=== PATIENT | female | born 1960 | race Caucasian/White ===

== ENCOUNTER 2024-04-25 06:09 | Day surgery (SDC) | payer OTHER, SELFPAY ==
[2024-04-23 14:20] VITALS: BMI 31.1
--- OUTSIDE RECORDS SUMMARY | 2024-04-25 06:10 | XMS_ITS | Continuity of Care Document ---
Author Organization [facility] [facility] Address [address] [place] [address]- Care Team Providers Care Research Agricultural Engineer Name Role Phone Libra Lugo MD Primary Care Physician Encounter 08/11/21 - 08/18/21 [facility] [address], [address] [place] [address]- Attending Physician: Libra Lugo MD Admitting Physician: Libra Lugo MD Referring Physician: Libra Lugo MD Allergies, Adverse Reactions, Alerts Substance Reaction Severity Status penicillin HIVES Active Immunizations Given and Recorded Vaccine Date Status Refusal Reason influenza virus vaccine, inactivated 1 03/17/14 Gi gianna Fluzone (oldterm) 04/19/12 Given Tet/diphth/pertussis, acel (oldterm) 04/19/12 Give n FluLaval (oldterm) 2 04/29/10 Given 1Admin Note: [facility] 2Admin Note: [facility]--[facility] Medications aspirin 81 mg oral enteric coated capsule 81, mg, 1, capsule, By Mouth, Daily, 0, 0, 06/11/06 8:20:55, Print SOPHIA Number, [id number], Constant Indicator Start Date: 06/11/06 Status: Ordered Calcium Acetate = 2,001 mg, By Mouth, Daily, 0 Refills, Maintenance, 07/27/11 13:55:31 Start Date: 07/27/11 Status: Ordered Flax Seed Oil oral capsule 0 Refills, Maintenance, 01/25/16 15:38:55 Start Date: 01/25/16 Status: Ordered Multivitamin By Mouth, Daily, 0 Refills, Maintenance Start Date: 07/27/11 Status: Ordered Problem List Condition Effective Dates Status Health Status Inform ant DVT(Confirmed) Active Hypercholesterolemia(Confirmed) Active Paroxysmal supraventricular tachycardia(Confirmed) Active Prediabetes(Confirmed) Active Pulmonary embolism(Confirmed) Active Social History Social History Type Response Smoking Status Never smoker; Tobacc o user in household: No entered on: 01/25/16 Sex
--- OUTSIDE RECORDS SUMMARY | 2024-04-25 06:10 | XMS_ITS | Continuity of Care Document ---
Author Organization [facility] Address [address] [place] [address]- Care Team Providers Care Rn Clinical Documentation Name Role Phone Estephania Zambrano DO Primary Care Physician Encounter [facility] [place] Date(s): 12/21/23 - 01/20/24 [facility] [address] [place] [id number] Allergies, Adverse Reactions, Alerts Substance Reaction Severity Status penicillin HIVES Active simvastatin Muscle ache Active Coconut Mild Active Immunizations Given and Recorded Vaccine Date Status Refusal Reason influenza virus vaccine, inactivated 05/01/23 [place] rded influenza virus vaccine, inactivated 05/13/21 [place] rded influenza virus vaccine, inactivated 05/10/17 [place] rded influenza virus vaccine, inactivated 1 03/17/14 Gi gianna tetanus-diphtheria toxoids (Td) 10/26/22 Recorded SARS-CoV-2 (COVID-19) mRNA BNT-162b2 vac 07/07/21 Recorded SARS-CoV-2 (COVID-19) mRNA BNT-162b2 vac 08/07/20 Recorded SARS-CoV-2 (COVID-19) mRNA BNT-162b2 vac 07/17/20 Recorded Fluzone (oldterm) 04/19/12 Given Tet/diphth/pertussis, acel (oldterm) 04/19/12 Give n tetanus/diphtheria/pertussis, acel(Tdap) 04/19/12 Recorded FluLaval (oldterm) 2 04/29/10 Given 1Admin Note: [facility] [employer] 2Admin Note: [facility]--EMPLOYER Medications Calcium Acetate = 2,001 mg, By Mouth, Daily, 0 Refills, Maintenance, 07/27/11 13:55:31 Start Date: 07/27/11 Status: Ordered Eliquis 5 mg oral tablet 1 tablet = 5 mg, By Mouth, 2 times a day, # 180 tablet, 3 Refills, Maintenance, 10/24/23 9:20:00 EDT, Tablet, [facility]/pharmacy #[id number], Partial fill upon patient request if the prescription is for a schedule II opioid drug., 166, cm, 10/24/23 8:47:00 EDT, H... Start Date: 10/24/23 Status: Ordered Flonase 50 mcg/inh nasal spray 1 sprays, Nares, Both, 2 times a day, # 16 Gm, 0 Refills, Maintenance, 01/31/23 11:36:00 EDT, [place], [id number], Partial fill upon patient request if the prescription is for a schedule II opioid drug., 1 sprays Nares, Both 2 times a day, 166,... Start Date: 01/31/23 Status: Ordered magnesium glycinate By Mouth, 0 Refills, Maintenance, 09/04/23 15:14:00 EST, Partial fill upon patient request if the prescription is for a schedule II opioid drug. Start Date: 09/04/23 Status: Ordered Problem List Condition Confirmation Course Effective Dates Status H ealth Status Informant History of pulmonary embolism Confirmed Active History of DVT in adulthood Confirmed Active Mixed hyperlipidemia Confirmed Active Obese class I Confirmed Active Paroxysmal supraventricular tachycardia Confirmed Active Physical exam Confirmed Active Colon cancer screening Confirmed Active TMJ syndrome Confirmed Active Uterine prolapse Confirmed Active Social History Social History Type Response Smoking Status Never smoker; Tobacc o user in household: No entered on: 01/25/16 Sex Patient Care team information Care Team Personnel Name: Estephania Zambrano DO Position: [facility] Physician - Primary Care Member Role: PCP Address: Address: [address] [place] [address]- Care Team Related Persons Name: ESTEPHANIA LOCKWOOD Address: home [address] [place] [phone] Name: DENIA LOCKWOOD Address: home [address] [place] [phone] Name: Castillo Chong
--- OUTSIDE RECORDS SUMMARY | 2024-04-25 06:10 | XMS_ITS | Continuity of Care Document ---
Author Organization [facility] Address [address] [place] [address]- Care Team Providers Care Shirt Folder Name Role Phone Lbira Lugo MD Primary Care Physician [phone] Encounter 07/15/20 - 07/22/20 [facility] [address], [address] [place] [address]- [place] Attending Physician: Libra Lugo MD Admitting Physician: Libra Lugo MD Referring Physician: Libra Lugo MD Allergies, Adverse Reactions, Alerts Substance Reaction Severity Status penicillin HIVES Active Immunizations Given and Recorded Vaccine Date Status Refusal Reason influenza virus vaccine, inactivated 1 03/17/14 Gi gianna Fluzone (oldterm) 04/19/12 Given Tet/diphth/pertussis, acel (oldterm) 04/19/12 Give n FluLaval (oldterm) 2 04/29/10 Given 1Admin Note: [facility] 2Admin Note: [facility]--[facility]ER Medications aspirin 81 mg oral enteric coated capsule 81, mg, 1, capsule, By Mouth, Daily, 0, 0, 06/11/06 8:20:55, Print SOPHIA Number, [id number], Constant Indicator Start Date: 06/11/06 Status: Ordered [...]
--- OUTSIDE RECORDS SUMMARY | 2024-04-25 06:11 | XMS_ITS | Continuity of Care Document ---
Author Organization [facility] Address [address] [place] [address]- Care Team Providers Care Casing Crew Pusher Name Role Phone Estephania Zambrano DO Primary Care Physician Encounter [facility] Date(s): 12/21/23 - 01/20/24 [facility] [address] [place] [address] Allergies, Adverse Reactions, Alerts Substance [...] FluLaval (oldterm) 2 04/29/10 Given 1Admin Note: [facility] 2Admin Note: [facility]--[facility]OY[facility] Medications Calcium Acetate = 2,001 mg, By Mouth, Daily, 0 Refills, Maintenance, 07/27/11 13:55:31 Start Date: 07/27/11 Status: Ordered Eliquis 5 mg oral tablet 1 tablet = 5 mg, By Mouth, 2 times a day, # 180 tablet, 3 Refills, Maintenance, 10/24/23 9:20:00 EDT, Tablet, [facility]/pharmacy #1230, Partial fill upon patient request if the prescription is for a schedule II opioid drug., 166, cm, 10/24/23 8:47:00 EDT, H... Start Date: 10/24/23 Status: Ordered Flonase 50 mcg/inh nasal spray 1 sprays, Nares, Both, 2 times a day, # 16 Gm, 0 Refills, Maintenance, 01/31/23 11:36:00 EDT, [place], [facility], Partial fill upon patient request [...] Team Personnel Name: Estephania Zambrano DO Position: [facility] Physician - Primary Care Member Role: PCP Address: Address: [address] [place] [address]- Care Team Related Persons Name: ESTEPHANIA LOCKWOOD Address: home [address] [place] [address] Name: DENIA LOCKWOOD Address: home [address] [place] [address] Name: Castillo Chong
--- OUTSIDE RECORDS SUMMARY | 2024-04-25 06:11 | XMS_ITS | Continuity of Care Document ---
Author Organization [facility] Address [address] [place] [address]- Care Team Providers Care Assistant Professor Of Sociology Name Role Phone Estephania Zambrano DO Primary Care Physician Encounter [facility] Date(s): 10/25/23 - 03/18/24 [facility] [address] [place] [id number] Discharge Disposition: A-D/C Home Attending Physician: Jacob Soni MD Admitting Physician: Jacob Soni MD Referring Physician: Estephania Zambrano DO Allergies, Adverse Reactions, Alerts Substance Reaction Severity [...] FluLaval (oldterm) 2 04/29/10 Given 1Admin Note: [facility] 2Admin Note: [facility] Medications Calcium Acetate = 2,001 mg, By Mouth, Daily, 0 Refills, Maintenance, 07/27/11 13:55:31 Start Date: 07/27/11 Status: Ordered Eliquis 2.5 mg oral tablet 1 tablet = 2.5 mg, By Mouth, 2 times a day, Decreasing dose per casino banker recommendation, # 180 tablet, 3 Refills, Maintenance, 02/04/24 16:43:00 EDT, [place], [id number], Partial fill uponpatient request if the prescription is for a schedu... Start Date: 02/04/24 Status: Ordered Flonase 50 mcg/inh nasal spray 1 sprays, Nares, Both, 2 times a day, # 16 Gm, 0 Refills, Maintenance, 01/31/23 11:36:00 EDT, [place], [id number], Partial fill upon patient request [...] syndrome Confirmed Active Uterine prolapse Confirmed Active Vital Signs Most recent to oldest [Reference Range]: 1 Height 165 cm (12/21/23 9:01 AM) Weight 84.5 kg (12/21/23 9:01 AM) Oxygen Saturation [94-100 %] 94 % (12/21/23 9:01 AM) Pulse Rate [55-90 bpm] 71 bpm (12/21/23 9:01 AM) Body Mass Index [18.5-24.99 kg/m2] 31.04 kg/m2 *>HHI* (12/21/23 9:01 AM) Blood Pressure [90-138/55-84 mm Hg] 133/ 84mm Hg (12/21/23 9:01 AM) Temperature [96.8-100.4 DegF] 97.6 DegF (12/21/23 9:01 AM) Mode of Delivery (Oxygen) Room air (12/21/23 9:01 AM) Blood pressure sites Arm, right (12/21/23 9:01 AM) Temperature Route Oral (12/21/23 9:01 AM) Dry Weight 84.5 kg (12/21/23 9:01 AM) Weight Obtained Via Standing scale (12/21/23 9:01 AM) Dry Weight Obtained Via Standing scale (12/21/23 9:01 AM) Social History Social History Type Response Smoking Status Never smoker; Tobacc o user in household: No entered on: 01/25/16 Sex Patient Care team information Care Team Personnel Name: Estephania Zambrano DO Position: [facility] Physician - Primary Care Member Role: PCP Address: Address: [address] [place] [id number] Name: Jacob Soni MD Position: [facility] Physician - Oncology Med Service: Hematology & Oncology Member Role: Admitting Physician Address: Address: [address] [place] [address] Hematology Oncology [place], [place] [address] Care Team Related Persons Name: ESTEPHANIA LOCKWOOD Address: home [address] [place] [address] Name: DENIA LOCKWOOD Address: home [address] [place], [place] [id number] Name: Castillo Chong
--- OUTSIDE RECORDS SUMMARY | 2024-04-25 06:11 | XMS_ITS | Continuity of Care Document ---
Author Organization [facility] Address [address] [place] [address]- Care Team Providers Care Sports Reporter Name Role Phone Parish REILLY, Libra London Primary Care Physician Encounter 08/23/23 - 08/30/23 [facility] [address], [address] [place] [address]- Attending Physician: María Elena Mike MD Admitting Physician: María Elena Mike MD Referring Physician: María Elena Mike MD Allergies, Adverse Reactions, Alerts Substance Reaction Severity Status penicillin HIVES Active Immunizations Given and Recorded Vaccine Date Status Refusal Reason influenza virus vaccine, inactivated 1 03/17/14 Gi gianna Fluzone (oldterm) 04/19/12 Given Tet/diphth/pertussis, acel (oldterm) 04/19/12 Give n FluLaval (oldterm) 2 04/29/10 Given 1Admin Note: [facility] 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 Start Date: 08/01/23 Status: Ordered Calcium Acetate = 2,001 mg, By Mouth, Daily, 0 Refills, Maintenance, 07/27/11 13:55:31 Start Date: 07/27/11 Status: Ordered Eliquis 2.5 mg oral tablet 1 tablet = 2.5 mg, By Mouth, 2 times a day, 0 Refills, Maintenance, 01/31/23 11:34:00 EDT, Partial fill upon patient request if the prescription is for a schedule II opioid drug. Start Date: 01/31/23 Status: Ordered Flax Seed Oil oral capsule 0 Refills, Maintenance, 01/25/16 15:38:55 Start Date: 01/25/16 Status: Ordered Flonase 50 mcg/inh nasal spray 1 sprays, Nares, Both, 2 times a day, # 16 Gm, 0 Refills, Maintenance, 01/31/23 11:36:00 EDT, [place], [facility]/pharmacy #1230, Partial fill upon patient request if the prescription is for a schedule II opioid drug., 1 sprays Nares, Both 2 times a day, 166,... Start Date: 01/31/23 Status: Ordered loratadine 10 mg oral tablet 10 mg, 1, tablet, By Mouth, Daily, # 30 tablet, Refills 0, Tot. Refills 0, Maintenance, 01/31/23 11:36:00 EDT, Route to Pharmacy Electronically, [facility]/pharmacy #[id number], Partial fill upon patient request if the prescription is for a schedule II opioid drug... Start Date: 01/31/23 Status: Ordered Multivitamin By Mouth, Daily, 0 Refills, Maintenance Start Date: 07/27/11 Status: Ordered Problem List Condition Confirmation Course Effective Dates Status Health Status Informant DVT Confirmed Active Hypercholesterolemia Confirmed Active Paroxysmal supraventricular tachycardia Confirmed Active Prediabetes Confirmed Active Pulmonary embolism Confirmed Active Results Radiology Reports * Exam Date Time Procedure Performing Provider Status 08/23/23 8:28 AM MM Digital Mammo Screening Perez , E dmarie; Auth (Verified) Notes: (MM Digital Mammo Screening) Reason For Exam: Z12.31 SCREENING RESULT: MM Digital Mammo Screening PROCEDURE: MM Digital Mammo Screening INDICATION: Screening for breast cancer. No known palpable abnormalities. COMPARISON: Multiple prior studies dating back to 07/15/2020. TECHNIQUE: Full-field digital CC and MLO 3D tomosynthesis images of both breasts were acquired. Computer-aided detection (CAD) was utilized in the interpretation of this study. DENSITY: The breast tissue contains scattered areas of fibroglandular density. FINDINGS: No suspicious masses, suspicious microcalcifications, or areas of architectural distortion are seen in either breast to suggest malignancy. IMPRESSION: No mammographic evidence of malignancy. RECOMMENDATION: Annual mammographic screening BI-RADS: 1 (Negative) Lay letter mailed to patient WSN: [id number] Ordering Physician: María Elena Mike MD Dictated By: Mj Anderson MD Dictated Date/Time: 08/23/23 10:22 am Reviewed By: Mj Anderson MD Signed By: Mj Anderson MD Signed Date/Time: 08/23/23 10:22 am Transcribed By: GONZALEZ Occasional Babysitter Date/Time: 08/23/23 10:20 am Birads: Social History Social History Type Response Smoking Status Never smoker; Tobacc o user in household: No entered on: 01/25/16 Sex Patient Care team information Care Team Personnel Name: Libra Lugo MD Position: [facility] Physician (General Medicine) Member Role: PCP Address: Address: [address] [place] [address] [address] [place] [address]- Care Team Related Persons Name: ESTEPHANIA LOCKWOOD Address: home [address] [place] [address] Name: Castillo Chong
--- OUTSIDE RECORDS SUMMARY | 2024-04-25 06:11 | XMS_ITS | Continuity of Care Document ---
Author Organization [facility] Address [address] [place] [address]- Care Team Providers Care Spanish Moss Picker Name Role Phone Estephania Zambrano DO Primary Care Physician [phone] Encounter [facility] Date(s): 12/21/23 - 01/20/24 [facility] [address] [place] [id number] Allergies, Adverse Reactions, Alerts Substance Reaction [...] FluLaval (oldterm) 2 04/29/10 Given 1Admin Note: [facility] [employer] [facility] 2Admin Note: [facility]--[facility]OYER Medications Calcium Acetate = 2,001 mg, By Mouth, Daily, 0 Refills, Maintenance, 07/27/11 13:55:31 Start Date: 07/27/11 Status: Ordered Eliquis 5 mg oral tablet 1 tablet = 5 mg, By Mouth, 2 times a day, # 180 tablet, 3 Refills, Maintenance, 10/24/23 9:20:00 EDT, Tablet, [facility]/pharmacy #1230, Partial fill upon patient request if the prescription is for a schedule II opioid drug., 166, cm, 10/24/23 8:47:00 EDT, H... Start Date: 10/24/23 Status: Ordered Flonase 50 mcg/inh nasal spray 1 sprays, Nares, Both, 2 times a day, # 16 Gm, 0 Refills, Maintenance, 01/31/23 11:36:00 EDT, [place], [facility], Partial fill upon patient request [...] Team Personnel Name: Estephania Zambrano DO Position: [facility] Physician - Primary Care Member Role: PCP Address: Address: [address] [place] [address]- Care Team Related Persons Name: ESTEPHANIA LOCKWOOD Address: home [address] [place] [address] Name: DENIA LOCKWOOD Address: home [address] [place] [address] Name: Castillo Chong
--- OUTSIDE RECORDS SUMMARY | 2024-04-25 06:11 | XMS_ITS | Continuity of Care Document ---
Author Organization [facility] Koby Lewis Tez lt Address [address] [place] [address]- Care Team Providers Care Boiler Cleaner Name Role Phone Estephania Zambrano DO Primary Care Physician [phone] [place] [facility] [place](s): 10/24/23 - 10/31/23 [facility] Koby Wigginsley Adult [address] [place] [address]- Encounter Diagnosis History of DVT in adulthood(Discharge Diagnosis) - 10/22/23 Mixed hyperlipidemia(Discharge Diagnosis) - 10/22/23 Uterine prolapse(Discharge Diagnosis) - 10/22/23 History of pulmonary embolism(Discharge Diagnosis) - 10/24/23 Obese class I(Discharge Diagnosis) - 10/24/23 Paroxysmal supraventricular tachycardia(Discharge Diagnosis) - 10/24/23 Colon cancer screening(Discharge Diagnosis) - 10/24/23 TMJ syndrome(Discharge Diagnosis) - 10/24/23 Attending Physician: Estephania Zambrano DO Allergies, Adverse Reactions, [...] FluLaval (oldterm) 2 04/29/10 Given 1Admin Note: [facility] [employer] [facility] 2Admin Note: [facility] Medications Calcium Acetate = 2,001 mg, By Mouth, Daily, 0 Refills, Maintenance, 07/27/11 13:55:31 Start Date: 07/27/11 Status: Ordered Eliquis 5 mg oral tablet 1 tablet = 5 mg, By Mouth, 2 times a day, # 180 tablet, 3 Refills, Maintenance, 10/24/23 9:20:00 EDT, Tablet, [id number], Partial fill upon patient request if the prescription is for a schedule II opioid drug., 166, cm, 10/24/23 8:47:00 EDT, H... Start Date: 10/24/23 Status: Ordered Flonase 50 mcg/inh nasal spray 1 sprays, Nares, Both, 2 times a day, # 16 Gm, 0 Refills, Maintenance, 01/31/23 11:36:00 EDT, [place], [id number], Partial fill upon patient request [...] Effective Dates Status H ealth Status Informant DVT Confirmed Active History of pulmonary embolism Confirmed Active History of DVT in adulthood Confirmed Active Mixed hyperlipidemia Confirmed Active Obese class I Confirmed Active Paroxysmal supraventricular tachycardia Confirmed Active Physical exam Confirmed Active Colon cancer screening Confirmed Active TMJ syndrome Confirmed Active Uterine prolapse Confirmed Active Diagnosis Diagnosis Type Effective Dates Health Status Clinical Service Informant History of DVT in adulthood Discharge Diagnosis 10/22/23 Mixed hyperlipidemia Discharge Diagnosis 10/22/23 Uterine prolapse Discharge Diagnosis 10/22/23 History of pulmonary embolism Discharge Diagnosis 10/24/23 Obese class I Discharge Diagnosis 10/24/23 Paroxysmal supraventricular tachycardia Discharge Diagnosis 10/24/23 Colon cancer screening Discharge Diagnosis 10/24/23 TMJ syndrome Discharge Diagnosis 10/24/23 Vital Signs Most recent to oldest [Reference Range]: 1 Height 166 cm (10/24/23 8:47 AM) Weight 87.4 kg (10/24/23 8:47 AM) Oxygen Saturation [94-100 %] 99 % (10/24/23 8:47 AM) Pulse Rate [55-90 bpm] 68 bpm (10/24/23 8:47 AM) Body Mass Index [18.5-24.99 kg/m2] 31.72 kg/m2 *>HHI* (10/24/23 8:47 AM) Blood Pressure [90-138/55-84 mm Hg] 124/ 63mm Hg (10/24/23 8:47 AM) Respiratory Rate [16-30 br/min] 20 br/mi n (10/24/23 8:47 AM) Temperature [96.8-100.4 DegF] 97.8 DegF (10/24/23 8:47 AM) Mode of Delivery (Oxygen) Room air (10/24/23 8:47 AM) Blood pressure sites Arm, left (10/24/23 8:47 AM) Temperature Route Oral (10/24/23 8:47 AM) Weight Obtained Via Standing scale (10/24/23 8:47 AM) Social History Social History Type Response Smoking Status Never smoker; Tobacc o user in household: No entered on: 01/25/16 Sex Note * María Elena Dalton: PERFORM, SIGN, VERIFY Event Display: Patient Education/Instruction Authored Date: [id number] [facility] *BMP Roxane Mckee Clinical Summary Name NATE LOCKWOOD Age 63 Years 1960 PCP [id number] Visit Date 10/24/2023 08:39:00 Patient Instructions work on diet and exercise?? Obtain Fasting lab Shingrix??vaccine??at pharmacy Additional Instructions: Scheduled Appointments?? Future Appointments ?No Future Appointments Scheduled Follow-Up Instructions ?? With: Address: When: 6 months CPE Comments: recurent DVT lipids Diagnosis Arthralgia of temporomandibular joint, unspecified side; Personal history of other venous thrombosis and embolism; Personal history of pulmonary embolism; Encounter for screening for malignant neoplasm of colon; Mixed hyperlipidemia; Supraventricular tachycardia, unspecified; Uterovaginal prolapse,unspecified; Body mass index [BMI] 30.0-30.9, adult Medications: Please continue your medications until treatment is completed or stopped by your provider. Discuss any questions related to medications with your provider. Medications to Continue Taking That Have Changed [id number] [address], [place] [id number], [phone] - apixaban (Eliquis 5 mg oral tablet) 1 tab(s) Oral twice a day. Refills: 3. Next Dose: Medications to Continue with No Changes These medications were not printed or sent to your pharmacy Calcium Acetate 2,001 Milligram Oral Daily. Next Dose: Fluticasone Nasal (Flonase 50 mcg/inh nasal spray) 1 spray(s) Nares, Both twice a day. Refills: 0. Next Dose: magnesium glycinate Oral. Next Dose: No Longer Take the Following Medications Aspirin (aspirin 81 mg oral enteric coated capsule) 1 capsule Oral Daily. Azithromycin (azithromycin 250 mg oral tablet) 1 pack/packet Oral once. 2 tabs today and then 1 tabdaily to complete 5 days. Refills: 0. Flax (Flax Seed Oil oral capsule) Loratadine (loratadine 10 mg oral tablet) 1 tab(s) Oral Daily. Refills: 0. Multivitamin Oral Daily. Allergy Info:?? Coconut; simvastatin; penicillin Medications Given This Visit Future Orders ?No future orders Future Orders ?CBC w/ Differential? Order Date:10/24/23?- Complete within?Comprehensive Metabolic Panel? Order Date:10/24/23?- Complete within?Lipid Panel? Order Date:10/24/23?- Complete within? Vital Signs Height 166 cm Weight 87.4 kg BMI 31.72 kg/m2 Blood Pressure 124 mm Hg/63 mm Hg Temperature 97.8 DegF Pulse Rate 68 bpm Respiratory Rate 20 br/min 02 Sat Mode of Delivery 99 %/Room air You can now view a summary of your hospital visit from the comfort of your home through a free online portal called [employer]. [employer] is a website that allows you to securely view your medical information including discharge summary, medications and follow-up visits. ??You can alsosend a secure electronic message to your doctor???s office to request appointments, renew medications or just ask a question. You can enroll at [email or web address] or register during your next office visit. Disclaimer:?? The information provided is of a general nature and is intended to be used in conjunction with the recommendations and advice of your health care practitioner. ??Every effort has been made to ensure that the information provided is accurate and complete at the time it is provided to you however, as your needs change, or, as new ??information becomes available, different or additional instructions may be required. If you have questions, please consult with your primary care provider or pharmacist, as appropriate. ??This information is not intended to serve as substitution for assessment and evaluation by a qualified health care provider. If you do not have a primary care provider, you may find a [facility] provider by calling [facility] [employer] at [phone]. [facility], in keeping with [facility] guidance, no longer requires face masks for staff, patientsor visitors in most situations. Similar to time spent indoors at other locations, there is the chance that you were exposed to respiratory viruses during your time with us (such as flu or COVID-19).? If you develop symptoms concerning for a viral respiratory infection, please seek testing (and treatment if indicated) from your medical provider or home test kit. For information about the plan of care including goals and instructions for your diagnosis, please see the patient education orders section of this document. Patient Education Materials?? The content of this educational material or handout may have been modified, supplemented, or adapted from its original content and format to support your individualized medical care. Prevention Guidelines, Women Ages 50 to 64 Screening tests and vaccines are an important part of managing your health. Health counseling is essential, too. Below are guidelines for these, for women ages 50 to 64. Talk with your healthcare provider to make sure you???re up to date on what you need. Screening Who needs it How often Type 2 diabetes or prediabetes All adults beginning at age 45 and adults without symptoms at any age who are overweight or obese and have 1 or more additional risk factors for diabetes. At?? least every 3 years Alcohol misuse All women in this age group At routine exams Blood pressure All women in this age group Every 2 years if your blood pressure is less than 120/80 mm Hg; yearly if your systolic blood pressure is 120 to 139 mm Hg, or your diastolic blood pressure reading is 80 to 89 mm Hg Breast cancer All women in this age group Yearly mammogram and clinical breast exam1 Cervical cancer All women in this age group, except women who have had a complete hysterectomy Pap test every 3 years or Pap test with human papillomavirus (HPV) test every 5 years Chlamydia Women at increased risk for infection At routine exams Colorectal cancer All women in this age group Flexible sigmoidoscopy every 5 years, or colonoscopy every 10 years, or double- contrast barium enema every 5 years; yearly fecal occult blood test or fecal immunochemical test; or a stool DNA test asoften as your health care provider advises; talk with your health care provider about which tests are best for you Depression All women in this age group At routine exams Gonorrhea Sexually active women at increased risk for infection At routine exams Hepatitis C Anyone at increased risk; 1 time for those born between 1945 and 1965 At routine exams High cholesterol or triglycerides All women in this age group who are at risk for coronary artery disease At least every 5 years HIV All women At routine exams Lung cancer Adults age 55 to 80 who have smoked Yearly screening in smokers with 30 pack-year history of smoking or who quit within 15 years Obesity All women in this age group At routine exams Osteoporosis Women who are postmenopausal Ask your healthcare provider Syphilis Women at increased risk for infection ??? talk with your healthcare provider At routine exams Tuberculosis Women at increased risk for infection ??? talk with your healthcare provider Ask your healthcare provider Vision All women in this age group Ask your healthcare provider Vaccine Who needs it How often Chickenpox (varicella) All women in this age group who have no record of this infection or vaccine 2 doses; the second dose should be given at least 4 weeks after the first dose Hepatitis A Women at increased risk for infection ??? talk with your healthcare provider 2 doses given at least 6 months apart Hepatitis B Women at increased risk for infection ??? talk with your healthcare provider 3 doses over 6 months; second dose should be given 1 month after the first dose; the third dose should be given at least 2 months after the second dose and at least 4 months after the first dose Haemophilus influenzaeType B (HIB) Women at increased risk for infection ??? talk with your healthcare provider 1 to 3 doses Influenza (flu) All women in this age group Once a year Measles, mumps, rubella (MMR) Women in this age group through their late 50s who have no record of these infections or vaccines 1 dose Meningococcal Women at increased risk for infection ??? talk with your healthcare provider 1 or more doses Pneumococcal conjugate vaccine (PCV13) and pneumococcal polysaccharide vaccine (PPSV23) Women at increased risk for infection ??? talk with your healthcare provider PCV13: 1 dose ages 19 to 65 (protects against 13 types of pneumococcal bacteria) PPSV23: 1 to 2 doses through age 64, or 1 dose at 65 or older (protects against 23 types of pneumococcal bacteria) Tetanus/diphtheria/pertussis (Td/Tdap) booster All women in this age group Td every 10 years, or a one-time dose of Tdap instead of a Td booster after age 18, then Td every 10 years Zoster All women ages 60 and older 1 dose Counseling Who needs it How often BRCA gene mutation testing for breast and ovarian cancer susceptibility Women with increased risk for having gene mutation When your risk is known Breast cancer and chemoprevention Women at high risk for breast cancer When your risk is known Diet and exercise Women who are overweight or obese When diagnosed, and then at routine exams Sexually transmitted infection prevention Women at increased risk for infection ??? talk with your healthcare provider At routine exams Use of daily aspirin Women ages 55 and up in this age group who are at risk for cardiovascular health problems such as stroke When your risk is known Use of tobacco and the health effects it can cause All women in this age group Every exam 1American Cancer Society ?? 2185-7455 [employer]. [address] [place] [address], [place] [address]. All rights reserved. This information is not intended as a substitute for professional medical care. Always follow your healthcare professional's instructions. Patient Care team information Care Team Personnel Name: Estephania Zambrano DO Position: [facility] Physician - Primary Care Member Role: PCP Address: Address: [address] [place] [address]- Care Team Related Persons Name: ESTEPHANIA LOCKWOOD Address: [place] [address] Name: DENIA LOCKWOOD Address: [place] [address] Name: Castillo Chong
--- OUTSIDE RECORDS SUMMARY | 2024-04-25 06:11 | XMS_ITS | Continuity of Care Document ---
Author Organization [facility] Koby Lewis Tez Address [address] [place] [address]- Care Team Providers Care Solar Installer Name Role Phone Estephania Zambrano DO Primary Care Physician [place] [facility] [place]23 [place] 11/26/23 [facility] Koby Wigginsley Adult [address] [place] [address]- Allergies, Adverse Reactions, Alerts Substance Reaction Severity [...] FluLaval (oldterm) 2 04/29/10 Given 1Admin Note: [facility] 2Admin Note: [facility] Medications Calcium Acetate = 2,001 mg, By Mouth, Daily, 0 Refills, Maintenance, 07/27/11 13:55:31 Start Date: 07/27/11 Status: Ordered Eliquis 5 mg oral tablet 1 tablet = 5 mg, By Mouth, 2 times a day, # 180 tablet, 3 Refills, Maintenance, 10/24/23 9:20:00 EDT, Tablet, [facility], Partial fill upon patient request if the prescription is for a schedule II opioid drug., 166, cm, 10/24/23 8:47:00 EDT, H... Start Date: 10/24/23 Status: Ordered Flonase 50 mcg/inh nasal spray 1 sprays, Nares, Both, 2 times a day, # 16 Gm, 0 Refills, Maintenance, 01/31/23 11:36:00 EDT, [place], [facility], Partial fill upon patient request [...] Personnel Name: Estephania Zambrano DO Position: [facility] Physician - Primary Care Member Role: PCP Address: Address: [address] [place] [address]- [place] Care Team Related Persons Name: ESTEPHANIA LOCKWOOD Address: [address] [address] Name: DENIA LOCKWOOD Address: [address] [address] Name: Castillo Chong
--- OUTSIDE RECORDS SUMMARY | 2024-04-25 06:11 | XMS_ITS | Continuity of Care Document ---
Author Organization [facility] Address [address] [place] [address]- Care Team Providers Care Stockholder Name Role Phone Estephania Zambrano DO Primary Care Physician [phone] Encounter [facility] [place] Date(s): 01/09/24 - 02/08/24 [facility] [address] [place] [id number] Allergies, Adverse Reactions, Alerts Substance [...] FluLaval (oldterm) 2 04/29/10 Given 1Admin Note: [facility] 2Admin Note: [facility] Medications Calcium Acetate = 2,001 mg, By Mouth, Daily, 0 Refills, Maintenance, 07/27/11 13:55:31 Start Date: 07/27/11 Status: Ordered Eliquis 2.5 mg oral tablet 1 tablet = 2.5 mg, By Mouth, 2 times a day, Decreasing dose per gear machine operator recommendation, # 180 tablet, 3 Refills, Maintenance, 02/04/24 16:43:00 EDT, [place], [facility], Partial fill uponpatient request if the prescription is for a schedu... Start Date: 02/04/24 Status: Ordered Flonase 50 mcg/inh nasal spray 1 sprays, Nares, Both, 2 times a day, # 16 Gm, 0 Refills, Maintenance, 01/31/23 11:36:00 EDT, [place], [facility], Partial fill upon patient request [...] Team Personnel Name: Estephania Zambrano DO Position: [facility] Physician - Primary Care Member Role: PCP Address: Address: [address] [place] [address]- Care Team Related Persons Name: ESTEPHANIA LOCKWOOD Address: home [address] [place] [address] Name: DENIA LOCKWOOD Address: home [address] [place], [place] [id number] Name: Castillo Chong
--- OUTSIDE RECORDS SUMMARY | 2024-04-25 06:11 | XMS_ITS | Continuity of Care Document ---
Author Organization [facility] [place] Address [address] [facility] [place] [address]- Care Team Providers Care President Celebrity Acquistion Name Role Phone Parish REILLY, Libra London Primary Care Physician [phone] Encounter 08/17/22 - 08/24/22 [facility] [address], [address] [place] [address]- Attending Physician: María Elena Mike MD Admitting Physician: María Elena Mike MD Referring Physician: María Elena Mike MD Allergies, Adverse Reactions, Alerts Substance Reaction Severity Status penicillin HIVES Active Immunizations Given and Recorded Vaccine Date Status Refusal Reason influenza virus vaccine, inactivated 1 03/17/14 Gi gianna Fluzone (oldterm) 04/19/12 Given Tet/diphth/pertussis, acel (oldterm) 04/19/12 Give n FluLaval (oldterm) 2 04/29/10 Given 1Admin Note: [facility] 2Admin Note: [facility]--[facility] Medications aspirin 81 mg oral enteric coated capsule 81, mg, 1, capsule, By Mouth, Daily, 0, 0, 06/11/06 8:20:55, Print SOPHIA Number, [id number], Constant Indicator Start Date: 06/11/06 Status: Ordered [...] Exam Date Time Procedure Performing Provider Status 08/17/22 9:14 AM MM Digital Mammo Screening Sukhi Ying; Auth (Verified) Notes: (MM Digital Mammo Screening) Reason For Exam: Z12.31 SCREENING RESULT: MM Digital Mammo Screening PROCEDURE: MM Digital Mammo Screening INDICATION: Screening for breast cancer. No known palpable abnormalities. Sister has history of breast cancer at age 72. COMPARISON: Multiple priors, most recent 08/11/2021. TECHNIQUE: Full-field digital CC and MLO 3D [...] 1 (Negative) Lay letter mailed to patient I have personally reviewed the images and I agree with this report. WSN: [id number] Ordering Physician: María Elena Mike MD Dictated By: Monster Jacinto MD Dictated Date/Time: 08/17/22 11:11 am Reviewed By: Amish Solomon MD Signed By: Amish Solomon MD Signed Date/Time: 08/17/22 11:16 am Transcribed By: GONZALEZ Artist'S Manager Date/Time: 08/17/22 10:20 am Birads: Social History Social History Type Response Smoking Status Never smoker; Tobacc o user in household: No entered on: 01/25/16 Sex MG Breast Screening * [facility] , CIS S: TRANSCRIBE Monster Jacinto MD: SIGN Amish Solomon MD: VERIFY Event Display: Result: Authored Date: [id number] PROCEDURE: MM Digital Mammo Screening INDICATION: Screening for breast cancer. No known palpable abnormalities. Sister has history of breast cancer at age 72. COMPARISON: Multiple priors, most recent 08/11/2021. TECHNIQUE: Full-field digital CC and MLO 3D [...] 1 (Negative) Lay letter mailed to patient I have personally reviewed the images and I agree with this report. WSN: [id number] Ordering Physician: María Elena Mike MD Dictated By: Monster Jacinto MD Dictated Date/Time: 08/17/22 11:11 am Reviewed By: Amish Solomon MD Signed By: Amish Solomon MD Signed Date/Time: 08/17/22 11:16 am Transcribed By: GONZALEZ Artist'S Manager Date/Time: 08/17/22 10:20 am Birads: Patient Care team information Care Team Personnel Name: Libra Lugo MD Position: S Physician (General Medicine) Member Role: PCP Address: Address: [address] [facility] [address] [address]- Care Team Related Persons Name: ESTEPHANIA LOCKWOOD Address: [address] [place], [place] [id number] Name: Castillo Chong
--- OUTSIDE RECORDS SUMMARY | 2024-04-25 06:11 | XMS_ITS | Continuity of Care Document ---
Author Organization [facility] Address [address] [place] [address]- Care Team Providers Care Credit Card Clerk Name Role Phone Estephania Zambrano DO Primary Care Physician [phone] Encounter [facility] [place] Date(s): 10/25/23 - 11/24/[facility] [address] [place] [id number] Attending Physician: Ijeoma Whitmore Admitting Physician: AdmIjeoma rodgers Referring Physician: Admtr, Ijeoma Allergies, Adverse Reactions, Alerts Substance Reaction Severity [...] FluLaval (oldterm) 2 04/29/10 Given 1Admin Note: [facility] 2Admin Note: [facility]--[facility] Medications Calcium Acetate = 2,001 mg, By [...] Gm, 0 Refills, Maintenance, 01/31/23 11:36:00 EDT, [place], [facility], Partial fill upon patient request [...] Team Personnel Name: Estephania Zambrano DO Position: S Physician - Primary Care Member Role: PCP Address: Address: [address] [place] [address]- Care Team Related Persons Name: ESTEPHANIA LOCKWOOD Address: [place] [address] Name: DENIA LOCKWOOD Address: [place] [address] Name: Castillo Chong
--- OUTSIDE RECORDS SUMMARY | 2024-04-25 06:11 | XMS_ITS | Continuity of Care Document ---
Author Organization [facility] Address [address] [place] [address]- Care Team Providers Care Test Development Engineer Name Role Phone Estephania Zambrano DO Primary Care Physician Encounter [facility] [place] Date(s): 12/21/23 - 01/20/24 [facility] [address] [place] [id number] Allergies, Adverse Reactions, Alerts Substance Reaction Severity [...] FluLaval (oldterm) 2 04/29/10 Given 1Admin Note: [facility] [employer] [facility] 2Admin Note: [facility]--[facility] Medications Calcium Acetate = 2,001 mg, By Mouth, Daily, 0 Refills, Maintenance, 07/27/11 13:55:31 Start Date: 07/27/11 Status: Ordered Eliquis 5 mg oral tablet 1 tablet = 5 mg, By Mouth, 2 times a day, # 180 tablet, 3 Refills, Maintenance, 10/24/23 9:20:00 EDT, Tablet, [facility]/pharmacy #1230, Partial fill upon patient request if the prescription is for a schedule II opioid drug., 166, cm, 10/24/23 8:47:00 EDT, H... Start Date: 10/24/23 Status: Ordered Flonase 50 mcg/inh nasal spray 1 sprays, Nares, Both, 2 times a day, # 16 Gm, 0 Refills, Maintenance, 01/31/23 11:36:00 EDT, [place], [facility], Partial fill upon patient request [...] Team Personnel Name: Estephania Zambrano DO Position: [facility] Physician - Primary Care Member Role: PCP Address: Address: [address] [place] [address]- Care Team Related Persons Name: ESTEPHANIA LOCKWOOD Address: home [address] [place] [address] Name: DENIA LOCKWOOD Address: home [address] [place] [address] Name: Castillo Chong
--- OUTSIDE RECORDS SUMMARY | 2024-04-25 06:11 | XMS_ITS | Continuity of Care Document ---
Author Organization [facility] Aishwarya reed's [facility] Address [address], [address] [place] [address]- Care Team Providers Care Tree Care Foreman Name Role Phone Estephania Zambrano DO Primary Care Physician Encounter [facility] Date(s): 09/04/23 - 10/04/23 [facility] [employer] [facility] [address], [address] Floor [place], [place] [address] Attending Physician: AdmIjeoma rodgers Admitting Physician: AdmtrIjeoma Referring Physician: Admtr, Ijeoma Allergies, Adverse Reactions, Alerts Substance Reaction Severity Status penicillin HIVES Active Immunizations Given and Recorded Vaccine Date Status Refusal Reason influenza virus vaccine, inactivated 1 03/17/14 Gi gianna Fluzone (oldterm) 04/19/12 Given Tet/diphth/pertussis, acel (oldterm) 04/19/12 Give n FluLaval (oldterm) 2 04/29/10 Given 1Admin Note: [facility] 2Admin Note: [facility] Medications aspirin 81 mg oral enteric coated capsule 81, mg, 1, capsule, By Mouth, Daily, 0, 0, 06/11/06 8:20:55, Print SOPHIA Number, [id number], Constant Indicator Start Date: 06/11/06 Status: Ordered [...] Gm, 0 Refills, Maintenance, 01/31/23 11:36:00 EDT, [place], [facility]/pharmacy #[id number], Partial fill upon patient request if the prescription is for a schedule II opioid drug., 1 sprays Nares, Both 2 times a day, 166,... Start Date: 01/31/23 Status: Ordered loratadine 10 mg oral tablet 10 mg, 1, tablet, By Mouth, Daily, # 30 tablet, Refills 0, Tot. Refills 0, Maintenance, 01/31/23 11:36:00 EDT, Route to Pharmacy Electronically, [facility]/pharmacy #[id number], Partial fill upon patient request if the prescription is for a schedule II opioid drug... Start Date: 01/31/23 Status: Ordered magnesium glycinate By Mouth, 0 Refills, Maintenance, 09/04/23 15:14:00 EST, Partial fill upon patient request if the prescription is for a schedule II opioid drug. Start Date: 09/04/23 Status: Ordered Multivitamin By Mouth, Daily, 0 Refills, Maintenance Start Date: 07/27/11 Status: Ordered Problem List Condition Confirmation Course Effective Dates Status Health Status Informant DVT Confirmed Active Hypercholesterolemia Confirmed Active Paroxysmal supraventricular tachycardia Confirmed Active Prediabetes Confirmed Active Pulmonary embolism Confirmed Active Social History Social History Type Response Smoking Status Never smoker; Tobacc o user in household: No entered on: 01/25/16 Sex Patient Care team information Care Team Personnel Name: Estephania Zambrano DO Position: [facility] Physician - Primary Care Member Role: PCP Address: Address: [address] [place] [phone] [place] Care Team Related Persons Name: ESTEPHANIA LOCKWOOD Address: home [address] [place] [id number] Name: Castillo Chong
--- OUTSIDE RECORDS SUMMARY | 2024-04-25 06:11 | XMS_ITS | Continuity of Care Document ---
Author Organization [facility] Koby Lewis Tez Address [address] [place] [address]- Care Team Providers Care Brass Burnisher Name Role Phone Parish REILLY, Libra London Primary Care Physician [phone] Encounter [facility] Date(s): 07/26/23 - 08/25/23 [facility] Joshua Adult [address] [place] [address]- Allergies, Adverse Reactions, Alerts Substance Reaction Severity Status penicillin HIVES Active Immunizations Given and Recorded Vaccine Date Status Refusal Reason influenza virus vaccine, inactivated 1 03/17/14 Gi gianna Fluzone (oldterm) 04/19/12 Given Tet/diphth/pertussis, acel (oldterm) 04/19/12 Give n FluLaval (oldterm) 2 04/29/10 Given 1Admin Note: [facility] 2Admin Note: [facility]--[facility]OYER Medications aspirin 81 mg oral enteric coated capsule 81, mg, 1, capsule, By Mouth, Daily, 0, 0, 06/11/06 8:20:55, Print SOPHIA Number, [id number], Constant Indicator Start Date: 06/11/06 Status: Ordered [...] Gm, 0 Refills, Maintenance, 01/31/23 11:36:00 EDT, [place], [facility]/pharmacy #[id number], Partial fill upon patient request if the prescription is for a schedule II opioid drug., 1 sprays Nares, Both 2 times a day, 166,... Start Date: 01/31/23 Status: Ordered loratadine 10 mg oral tablet 10 mg, 1, tablet, By Mouth, Daily, # 30 tablet, Refills 0, Tot. Refills 0, Maintenance, 01/31/23 11:36:00 EDT, Route to Pharmacy Electronically, [facility]/pharmacy #[id number], Partial fill upon patient request [...] Team Personnel Name: Libra Lugo MD Position: [facility] Physician (General Medicine) Member Role: PCP Address: Address: [address] [address]- Care Team Related Persons Name: FABIÁN ESTEPHANIA Davey Address: home [address] [place] [address] Name: Castillo Chong
--- OUTSIDE RECORDS SUMMARY | 2024-04-25 06:11 | XMS_ITS | Continuity of Care Document ---
Author Organization [facility] Koby Lewis Tez Address [address] [place] [address]- Care Team Providers Care Student Advisor Name Role Phone Estephania Zambrano DO Primary Care Physician [phone] Encounter [facility] Date(s): 02/04/24 - 03/05/24 [facility] Koby Lewis Adult [address] [place] [address]- Allergies, Adverse Reactions, Alerts Substance Reaction Severity [...] FluLaval (oldterm) 2 04/29/10 Given 1Admin Note: [facility] [employer] [facility] 2Admin Note: [facility]--[facility] Medications Calcium Acetate = 2,001 mg, By Mouth, Daily, 0 Refills, Maintenance, 07/27/11 13:55:31 Start Date: 07/27/11 Status: Ordered Eliquis 2.5 mg oral tablet 1 tablet = 2.5 mg, By Mouth, 2 times a day, Decreasing dose per wafer polisher recommendation, # 180 tablet, 3 Refills, Maintenance, 02/04/24 16:43:00 EDT, [place], [facility]acy #[id number], Partial fill uponpatient request if the prescription is for a schedu... Start Date: 02/04/24 Status: Ordered Flonase 50 mcg/inh nasal spray 1 sprays, Nares, Both, 2 times a day, # 16 Gm, 0 Refills, Maintenance, 01/31/23 11:36:00 EDT, [place], [id number], Partial fill upon patient request [...] Team Personnel Name: Estephania Zambrano DO Position: [facility] Physician - Primary Care Member Role: PCP Address: Address: [address] [place] [id number] Care Team Related Persons Name: ESTEPHANIA LOCKWOOD Address: home [address] [place] [address] Name: DENIA LOCKWOOD Address: home [address] [place], [place] [id number] Name: Castillo Chong
--- OUTSIDE RECORDS SUMMARY | 2024-04-25 06:11 | XMS_ITS | Continuity of Care Document ---
Author Organization [facility] Address [address] [place] [address]- Care Team Providers Care Cardiovascular Tech Name Role Phone Estephania Zambrano DO Primary Care Physician Encounter [facility] Date(s): 12/21/23 - 01/20/24 [facility] [address] [place] [id number] Allergies, Adverse Reactions, Alerts Substance [...] FluLaval (oldterm) 2 04/29/10 Given 1Admin Note: [facility] [employer] [facility] 2Admin Note: [facility]--[facility]ER Medications Calcium Acetate = 2,001 mg, By Mouth, Daily, 0 Refills, Maintenance, 07/27/11 13:55:31 Start Date: 07/27/11 Status: Ordered Eliquis 5 mg oral tablet 1 tablet = 5 mg, By Mouth, 2 times a day, # 180 tablet, 3 Refills, Maintenance, 10/24/23 9:20:00 EDT, [place], [facility]/pharmacy #[id number], Partial fill upon patient request if the prescription is for a schedule II opioid drug., 166, cm, 10/24/23 8:47:00 EDT, H... Start Date: 10/24/23 Status: Ordered Flonase 50 mcg/inh nasal spray 1 sprays, Nares, Both, 2 times a day, # 16 Gm, 0 Refills, Maintenance, 01/31/23 11:36:00 EDT, [place], [id number], Partial fill upon patient request [...] Team Personnel Name: Estephania Zambrano DO Position: [facility] Physician - Primary Care Member Role: PCP Address: Address: [address] [place] [id number]- Care Team Related Persons Name: ESTEPHNAIA LOCKWOOD Address: home [address] [place] [id number] Name: DENIA LOCKWOOD Address: home [address] [place] [phone] Name: Castillo Chong
[2024-04-25 06:36] VITALS: BP 135/73; PULSE 64; RESP 18; TEMP 36.9; O2SAT 98; BMI 31.3
[2024-04-25] MEDS: Lactated Ringers 1,000 ML 100 ML IVCONT (06:57)
--- NOTE | 2024-04-25 07:00 | P.CONAN_ITS ---
Documented by User: Jenifer Rosales NP 04/24/24 11:58 HPI - Anesthesia Eval Consult details Narrative: 63yo F for Colonoscopy Elquis for DVT [facility] Past Medical History Medical History (Updated 04/23/24 @ 14:22 by Randa Major RN) DVT (deep venous thrombosis) Female bladder prolapse SVT (supraventricular tachycardia) DEBBIE on CPAP Surgical History Surgical History (Updated 04/25/24 @ 06:58 by Dinora Voss RN) History of prolapse of bladder Hx of cholecystectomy Hx of tonsillectomy History of cardiac radiofrequency ablation (RFA) H/O colonoscopy Social History Social History (Updated 04/23/24 @ 14:20 by Randa Major RN) Household Members: Spouse Patient Tobacco Use Status: Tobacco use Unknown Have you been hit, kicked, punched, or otherwise hurt by someone within the past year? If so, by whom?: No Are you DNR?: No Advance Directives: No Advance Directives Information Provided: Yes Nutrition Risks: No Nutritional Risk Meds Allergies Allergy/AdvReac Type Severity Reaction Status Date / Time coconut Allergy Unknown Unknown Verified 04/23/24 14:21 Penicillins Allergy Unknown Unknown Verified 04/23/24 14:21 Home Medications ?Medication ?Instructions ?Recorded ?Confirmed ?Last Taken ?Type apixaban 2.5 mg tablet (Eliquis) 2.5 mg PO BID 04/23/24 04/23/24 04/21/24 History magnesium 04/25/24 04/25/24 Unknown History Exam Height,Weight and Vital Signs: Height 5 ft 5 in Weight 84.822 kg Assessment and Plan Assessment Anesthesia Assessment: Chart Reviewed Documented by User: Kasey Cooper DO 04/25/24 07:08 HPI - Anesthesia Eval Consult details Narrative: 63yo F for Colonoscopy Eliquis for DVT [facility] Past Medical History Medical History (Updated 04/23/24 @ 14:22 by Randa Major RN) DVT (deep venous thrombosis) Female bladder prolapse SVT (supraventricular tachycardia) DEBBIE on CPAP Family History Family history of problems with anesthesia: No Surgical History Surgical History (Updated 04/25/24 @ 06:58 by Dinora Voss RN) History of prolapse of bladder Hx of cholecystectomy Hx of tonsillectomy History of cardiac radiofrequency ablation (RFA) H/O colonoscopy History of Problems with Anesthesia: No (PONV years ago as a child) Social History Social History (Updated 04/23/24 @ 14:20 by Randa Major RN) Household Members: Spouse Patient Tobacco Use Status: Tobacco use Unknown Have you been hit, kicked, punched, or otherwise hurt by someone within the past year? If so, by whom?: No Are you DNR?: No Advance Directives: No Advance Directives Information Provided: Yes Nutrition Risks: No Nutritional Risk Meds Allergies Allergy/AdvReac Type Severity Reaction Status Date / Time coconut Allergy Unknown Unknown Verified 04/23/24 14:21 Penicillins Allergy Unknown Unknown Verified 04/23/24 14:21 Home Medications ?Medication ?Instructions ?Recorded ?Confirmed ?Last Taken ?Type apixaban 2.5 mg tablet (Eliquis) 2.5 mg PO BID 04/23/24 04/23/24 04/21/24 History magnesium 04/25/24 04/25/24 Unknown History Exam Exam Date and Time: 04/25/24 0700 Height,Weight and Vital Signs: Height 5 ft 5 in Weight 84.822 kg Vital Signs Temperature 98.5 F 04/25/24 06:36 Pulse Rate 64 04/25/24 06:36 Respiratory Rate 18 04/25/24 06:36 Blood Pressure 135/73 04/25/24 06:36 Pulse Oximetry 98 04/25/24 06:36 Oxygen Delivery Method Room Air 04/25/24 06:36 Temperature 98.5 F 04/25/24 06:36 Pulse Rate 64 04/25/24 06:36 Respiratory Rate 18 04/25/24 06:36 Blood Pressure 135/73 04/25/24 06:36 Pulse Oximetry 98 04/25/24 06:36 Oxygen Delivery Method Room Air 04/25/24 06:36 Airway Mallampati Class: II TM Dist: >3cm Neck ROM: Full Loose/Missing/Broken Teeth: No (patient denies any loose or broken teeth) Heart: S1S2 Lungs: CTAB Assessment and Plan Assessment Anesthesia Assessment: Anesthesia Plan Discussed and Chart Reviewed Final Anesthetic Review Family History of Problems with Anesthesia: No History of Problems with Anesthesia: No (PONV years ago as a child) NPO: Yes ASA Class: II Final Preanesthetic Review: No Changes in Pt Med Stat, Meds/Allgs Chart Reviewed, Consent Obtained/Reviewed and Anes Risks/Benef Reviewed Patient Risk: Low Procedure Risk: Low Anesthetic Plan Anesthetic Plan: MAC: and Agree w/ Assess. and Plan Disposition: Standard PACU
--- NOTE | 2024-04-25 07:33 | MHC.SHP ---
Pre-Procedural Eval Section A - 24 Hr Update-Section A only Date of Service: 04/25/24 Section B - Complete if H&P > 30 days Chief Complaint: Encounter for screening for malignant neoplasm of Details of Present Illness: see H&P no changes Relevant Family History (Specify if Yes): No Relevant Social History: None Present Medications: see Short Stay Collaborative assessment Medical History: No relevant PMH Allergies: Allergies Allergy/AdvReac Type Severity Reaction Status Date / Time coconut Allergy Unknown Unknown Verified 04/23/24 14:21 Penicillins Allergy Unknown Unknown Verified 04/23/24 14:21 Review of Systems Sugical H&P ROS: Negative: Constitution, Cardiovascular, Respiratory, Neurological, Psychiatric, Hem-Onc, Allergic/Immunologic, Gastrointestinal, Genitourinary, Musculoskeletal, Integumentary, Endocrine and Eyes/Ears/Nose/Throat Exam Surgical H&P Exam: Normal: HEENT, Normal: Heart, Normal: Lungs, Normal: Extremities, Normal: Abdomen, Normal: Skin and Normal: Neurological Plan Diagnosis/Plan: Unchanged I have reviewed the history and physical and performed a pertinent physical examination on my patient. No changes have occurred unless specified. Time Spent With Patient Time: Total time managing care of this patient today ____ minutes.
[2024-04-25 08:09] VITALS: BP 113/64; PULSE 68; RESP 12; TEMP 36.4; O2SAT 98
--- NOTE | 2024-04-25 08:21 | OP_ITS ---
DATE OF SERVICE: 04/25/2024 SURGEON: Armand Gonzalez MD INDICATIONS: Colon cancer screening. PREOPERATIVE DIAGNOSIS: POSTOPERATIVE DIAGNOSIS: PROCEDURE PERFORMED: Colonoscopy to the terminal ileum with biopsy. ESTIMATED BLOOD LOSS: COMPLICATIONS: ANESTHESIA: Monitored anesthesia care. ASSISTANTS: SPECIMENS: DESCRIPTION OF PROCEDURE: A history and physical were performed. The risks and benefits of the procedure were explained to the patient, and informed consent was obtained. The patient was placed in a left lateral decubitus position. A digital rectal exam was performed and was found to be normal. The Olympus pediatric video colonoscope was introduced into the rectum and advanced to the cecum. The cecum was identified by transillumination, palpation, identification of the ileocecal valve. Examination was performed, and the scope was removed. She tolerated the procedure well and was returned to the recovery room in stable condition. FINDINGS: The terminal ileum was normal. The visualized colonic mucosa was normal. The quality of prep was good. One polyp was identified in the rectum measuring approximately 4 mm. This was removed with biopsy forceps. No other polyps were identified. Retroflexed examination showed some small internal hemorrhoids and hypertrophic anal papillae. IMPRESSION: Colon polyp. RECOMMENDATION: Follow up the biopsy results. MD DOUGLAS Mccain/DIONI / [id number]
[2024-04-25 08:24] VITALS: BP 135/75; PULSE 57; RESP 12; TEMP 36.4; O2SAT 98
== END 2024-04-25 08:43 | disposition home or self-care (01) ==
PROVIDERS: PCP Family Medicine; Visit Provider Internal Medicine Gastroenterology
PROC: 0DJD8ZZ Inspection of Lower Intestinal Tract, Via Natural or Artificial Opening Endoscopic (ICD-10-PCS; CPT 45378; principal; 2024-04-25 07:30)
DX: Z12.11 Encounter for screening for malignant neoplasm of colon (principal); K62.1 Rectal polyp; K64.8 Other hemorrhoids; K62.89 Other specified diseases of anus and rectum; I47.10 Supraventricular tachycardia, unspecified; G47.33 Obstructive sleep apnea (adult) (pediatric); Z99.89 Dependence on other enabling machines and devices; Z86.718 Personal history of other venous thrombosis and embolism; Z79.01 Long term (current) use of anticoagulants
CPT/HCPCS: 45380; 88305; J2704